=== PATIENT | male | born 1940 | race Caucasian/White ===

== ENCOUNTER 2017-10-03 10:16 | Observation (INO) | payer BC, MEDICARE ==
[2017-10-03 10:16] VITALS: BMI 24.1
--- NOTE | 2017-10-03 10:32 | C.PDOC ---
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 per the pt became confused so they took bg and it was 34. she tried to give po but he would not take it. she says this has happened before. she is not sure if he ate breakfast today. he takes insulin at home. pts says he does not like hospitals and becomes "like a child" and refuses to cooperate in hospital setting. 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 SUBSTANCES (01/24/14) ESOPHAGOGASTRODUODENOSCOPY [EGD] W/CLOSED BIOPSY (01/24/14) INSERT ENDOTRACHEAL TUBE (01/24/14) PARENTERAL INFUSION OF CONCENTRATED NUT. SUBSTANCE (01/24/14) PERCUTANEOUS [ENDOSCOPIC] GASTROSTOMY [PEG] (01/24/14) PLICATION OF VENA CAVA (01/24/14) TEMPORARY TRACHEOSTOMY (01/24/14) TRANSFUSION NEC (01/24/14) VENOUS CATHETERIZATION NEC (01/24/14) Family History: States: Unknown Family Hx - Social History Hx Tobacco Use: No Hx Alcohol Use: No Hx Substance Use: No - Immunization History Hx Tetanus Toxoid Vaccination: No Hx Influenza Vaccination: No Hx Pneumococcal Vaccination: No Review Of Systems Except As Marked, All Systems Reviewed And Found Negative. Constitutional: Negative for: Fever, Chills, Weakness, Malaise Cardiovascular: Negative for: Chest Pain Respiratory: Negative for: Cough, Shortness of Breath Gastrointestinal: Negative for: Nausea, Vomiting, Abdominal Pain Neurological: Negative for: Weakness, Numbness, Headache Physical Exam - Physical Exam Appears: Confused Skin: Diaphoretic Head: Atraumatic Nose: No Epistaxis Oral Mucosa: Moist Neck: Supple Cardiovascular: Rhythm Regular Respiratory: No Decreased Breath Sounds, No Accessory Muscle Use, No Rales, No Rhonchi, No Stridor, No Wheezing Gastrointestinal/Abdominal: Soft Extremity: No Swelling Neurological/Psych: Other (moves all extremities spontaneously, localizes pain, uncooperative with exam.) ED Course And Treatment - Laboratory Results Result Diagrams: 10/03/17 10:56 10/03/17 12:39 Medical Decision Making Medical Decision Making: EKG: Sinus rhythm, 100 bpm, LAFB 1400 pt now a&ox3 and appears well, no complaints. disc w Dr Reed who will admit for refractory hypoglycemia Disposition - Disposition Disposition: HOSPITALIZED Disposition Time: 13:13 Condition: STABLE - Clinical Impression Clinical Impression: Hypoglycemia
[2017-10-03 11:06] LABS: BASO # 0.1 K/uL (0.0-0.2); EOS # 0.5 K/uL (0.0-0.7); EOS % 5.6 % (0.0-4.0); HEMATOCRIT 45.8 % (35.0-51.0); LYMPH # 2.7 K/uL (1.0-4.3); LYMPH % 33.3 % (20.0-40.0); MEAN CELL VOLUME 91.1 fL (80.0-94.0); MEAN CORPUSCULAR HEMOGLOBIN 30.3 pg (27.0-31.0); MEAN CORPUSCULAR HGB CONC 33.3 g/dL (33.0-37.0); MEAN PLATELET VOLUME 8.3 fL (7.2-11.7); MONO # 0.8 K/uL (0.0-0.8); MONO % 9.5 % (0.0-10.0); RED CELL DISTRIBUTION WIDTH 13.9 % (11.5-14.5)
--- NOTE | 2017-10-03 11:38 | RAD ---
HISTORY: ams COMPARISON: Chest x-ray performed 08/20/14 TECHNIQUE: Chest, one view. FINDINGS: Examination limited by hypoinflation and habitus. LUNGS: No focal consolidation. Please note that chest x-ray has limited sensitivity for the detection of pulmonary masses. PLEURA: No significant pleural effusion identified. No definite pneumothorax . CARDIOVASCULAR: Median sternotomy wires with evidence of CABG. Cardiomegaly. OSSEOUS STRUCTURES: Degenerative changes of the spine and shoulders. Osseous demineralization. VISUALIZED UPPER ABDOMEN: Unremarkable. OTHER FINDINGS: None. IMPRESSION: Cardiomegaly. Median sternotomy wires with evidence of CABG. Hypoinflation.
--- NOTE | 2017-10-03 12:17 | CT ---
PROCEDURE: CT HEAD WITHOUT CONTRAST. HISTORY: ams COMPARISON: Comparison is made to the previous study dated 07/21/2014 TECHNIQUE: Axial computed tomography images were obtained through the head/brain without intravenous contrast. Radiation dose: Total exam DLP = 1212.89 mGy-cm. This CT exam was performed using one or more of the following dose reduction techniques: Automated exposure control, adjustment of the mA and/or kV according to patient size, and/or use of iterative reconstruction technique. FINDINGS: HEMORRHAGE: No intracranial hemorrhage. BRAIN: Focal encephalomalacia at the left frontal lobe is again noted. [id number] atrophy is again noted. Mild chronic microvascular white matter ischemic disease is also again seen. VENTRICLES: The ventricles are mildly dilated suggestive of mild hydrocephalus. CALVARIUM: Unremarkable. PARANASAL SINUSES: Complete opacification of the left maxillary sinus is noted new compared to the previous exam. Mild thickening of the left maxillary sinus wall suggestive of chronic sinusitis. MASTOID AIR CELLS: Unremarkable as visualized. No inflammatory changes. OTHER FINDINGS: None. IMPRESSION: No evidence of acute intracranial hemorrhage territorial infarct mass effect or midline shift. Re- demonstration of encephalomalacia at the frontal lobes larger on the left suggestive of old injury. Atrophy and chronic microvascular ischemic disease. Complete opacification of the left maxillary sinus associated with wall thickening suggestive of chronic sinusitis.
[2017-10-03] MEDS ORDERED: Dextrose 50% SYRINGE Inj (50 ml) ONE (12:45)
[2017-10-03] MEDS ORDERED: Dextrose 50% SYRINGE Inj (50 ml) IV STA (13:10)
[2017-10-03 13:29] LABS: BILIRUBIN,TOTAL 0.6 mg/dL (0.2-1.3); CALCIUM 8.6 mg/dl (8.6-10.4); POTASSIUM 3.8 mmol/L (3.6-5.2); TOTAL PROTEIN 8.2 g/dL (6.3-8.3)
[2017-10-03 13:55] LABS: TROPONIN I 0.012 ng/mL (0.00-0.120)
[2017-10-03 15:18] LABS: RBC URINE 1 /hpf (0-3); URINE BILIRUBIN NEGATIVE (NEGATIVE); URINE BLOOD NEGATIVE (NEGATIVE); URINE COLOR Yellow (YELLOW); URINE GLUCOSE (UA) 2+ mg/dL (Normal); URINE KETONE NEGATIVE (NEGATIVE); URINE LEUKOCYTE ESTERASE NEG Leu/uL (Negative); URINE PROTEIN 2+ mg/dL (NEGATIVE); URINE UROBILINOGEN NORMAL mg/dL (0.2-1.0); WBC URINE 1 /hpf (0-5)
[2017-10-03 16:30] VITALS: RESP 20
[2017-10-03 16:51] VITALS: BP 134/81; TEMP 98.2; O2SAT 99
[2017-10-03] MEDS ORDERED: Lactobacillus Acidophilus 500 MU Cap PO SCH (18:00)
--- NOTE | 2017-10-03 20:21 | CP.PCM.HP ---
History of Present Illness - History of Present Illness History of Present Illness: Chief complaint: Altered mental status History present illness: 77-year-old male with history of diabetes, coronary artery disease, chronic kidney disease, benign prostate hypertrophy, torrie's gangrene 2010, hypertension, hypercholesterolemia, esophageal reflux disease, hospitalized following a fall, frontal hemorrhage intracranial hemorrhage complicated with tracheostomy improved markedly. Patient was being evaluated by the neurologist and found to have suspected seizure disorder. was placed on Keppra recently. Patient most of the time doing well, Today am he was checking his sugar and noted to be 64 and took his insulin but did not eat well. He went to sleep after that and family member noted that he was not responding and called ambulance EMS noted that the blood sugar was very low and he was given dextrose and brought to ED. In Er he was ok in the begining but again he got confusion and agitation. Again he was noted to be having low blood sugar. And he needed hospitalisation. Past medical history: Diabetes, PCKD, and BPH, hypertension, hypercholesterolemia, gastroesophageal reflux disease. Intracranial hemorrhage, Past surgical history: Tracheostomy, feeding tube in the past Allergy no known drug allergy Personal history: Patient is a lifelong nonsmoker nonalcoholic currently under disability Review of systems: Patient has no active symptoms of headache, he denies any visual symptoms. now no headache noted Present on Admission - Present on Admission Any Indicators Present on Admission: No History of DVT/PE: No History of Uncontrolled Diabetes: No Urinary Catheter: No Decubitus Ulcer Present: No Review of Systems - Review of Systems Systems not reviewed;Unavailable: Acuity of Condition All systems: reviewed and no additional remarkable complaints except Past Patient History - Past Medical History & Family History Past Medical History?: Yes - Past Social History Smoking Status: Never Smoked - CARDIAC Hx Hypercholesterolemia: Yes Hx Hypertension: Yes - PULMONARY Hx Pneumonia: Yes (ASPIRATION PNEMONIA JANUARY 2014) - NEUROLOGICAL Hx Seizures: Yes (SECONDARY TO BRAIN INJURY) - HEENT Hx HEENT Problems: Yes Hx Cataracts: Yes (LEFT IOL) - ENDOCRINE/METABOLIC Hx Hypothyroidism: Yes - HEMATOLOGICAL/ONCOLOGICAL Hx Blood Disorders: Yes Hx Blood Transfusions: Yes - INTEGUMENTARY Hx Dermatological Problems: No - MUSCULOSKELETAL/RHEUMATOLOGICAL Hx Musculoskeletal Disorders: Yes Hx Falls: Yes - GASTROINTESTINAL Hx Gastrointestinal Disorders: Yes Hx Gastroesophageal Reflux: Yes - GENITOURINARY/GYNECOLOGICAL Hx Genitourinary Disorders: Yes Other/Comment: WEAK BLADDER - PSYCHIATRIC Hx Substance Use: No - SURGICAL HISTORY Hx Surgeries: Yes Hx Coronary Artery Bypass Graft: Yes (TRIPLE BYPASS) Other/Comment: VENA CAVA FILTER - ANESTHESIA Hx Anesthesia: Yes Hx Anesthesia Reactions: No Hx Malignant Hyperthermia: No Meds Allergies/Adverse Reactions: Allergies Allergy/AdvReac Type Severity Reaction Status Date / Time No Known Allergies Allergy Verified 10/03/17 10:52 Physical Exam - Head Exam Head Exam: ATRAUMATIC Additional comments: clinically stable chest good air entry regular hs abd soft no edema Results - Vital Signs Recent Vital Signs: Last Vital Signs Temp 98.2 F 10/03/17 16:00 Pulse 100 H 10/03/17 16:00 Resp 20 10/03/17 16:00 BP 134/81 10/03/17 16:00 Pulse Ox 99 10/03/17 16:00 - Labs Result Diagrams: 10/03/17 10:56 10/03/17 12:39 Labs: Laboratory Results - last 24 hr 10/03/17 10/03/17 10/03/17 10:21 10:56 12:39 WBC 8.0 RBC 5.02 Hgb 15.2 D Hct 45.8 MCV 91.1 D MCH 30.3 MCHC 33.3 RDW 13.9 Plt Count 198 MPV 8.3 Neut % (Auto) 50.6 Lymph % (Auto) 33.3 [place] % (Auto) 9.5 Eos % (Auto) 5.6 H Baso % (Auto) 1.0 Neut # 4.0 Lymph # 2.7 [place] # 0.8 Eos # 0.5 Baso # 0.1 Sodium 142 Potassium 3.8 Chloride 105 Carbon Dioxide 23 Anion Gap 18 BUN 27 H Creatinine 1.4 Est GFR ( Amer) 60 Est GFR (Non-Af Amer) 49 POC Glucose (mg/dL) 166 H Random Glucose 32 L* D Calcium 8.6 Total Bilirubin 0.6 AST 31 ALT 27 Alkaline Phosphatase 67 Troponin I 0.0120 Total Protein 8.2 Albumin 4.2 Globulin 4.1 H Albumin/Globulin Ratio 1.0 Urine Color Urine Clarity Urine pH Ur Specific [place] Urine Protein Urine Glucose (UA) Urine Ketones Urine Blood Urine Nitrate Urine Bilirubin Urine Urobilinogen Ur Leukocyte Esterase Urine WBC (Auto) Urine RBC (Auto) Ur Squamous Epith Cells 10/03/17 10/03/17 10/03/17 12:40 13:53 14:50 WBC RBC Hgb Hct MCV MCH MCHC RDW Plt Count MPV Neut % (Auto) Lymph % (Auto) [place] % (Auto) Eos % (Auto) Baso % (Auto) Neut # Lymph # [place] # Eos # Baso # Sodium Potassium Chloride Carbon Dioxide Anion Gap BUN Creatinine Est GFR ( Amer) Est GFR (Non-Af Amer) POC Glucose (mg/dL) 39 L 193 H Random Glucose Calcium Total Bilirubin AST ALT Alkaline Phosphatase Troponin I Total Protein Albumin Globulin Albumin/Globulin Ratio Urine Color Yellow Urine Clarity Clear Urine pH 6.0 Ur Specific [place] 1.018 Urine Protein 2+ H Urine Glucose (UA) 2+ H Urine Ketones Negative Urine Blood Negative Urine Nitrate Negative Urine Bilirubin Negative Urine Urobilinogen Normal Ur Leukocyte Esterase Neg Urine WBC (Auto) 1 Urine RBC (Auto) 1 Ur Squamous Epith Cells 1 10/03/17 10/03/17 10/03/17 16:24 18:12 20:09 WBC RBC Hgb Hct MCV MCH MCHC RDW Plt Count MPV Neut % (Auto) Lymph % (Auto) [place] % (Auto) Eos % (Auto) Baso % (Auto) Neut # Lymph # [place] # Eos # Baso # Sodium Potassium Chloride Carbon Dioxide Anion Gap BUN Creatinine Est GFR ( Amer) Est GFR (Non-Af Amer) POC Glucose (mg/dL) 347 H 374 H 367 H Random Glucose Calcium Total Bilirubin AST ALT Alkaline Phosphatase Troponin I Total Protein Albumin Globulin Albumin/Globulin Ratio Urine Color Urine Clarity Urine pH Ur Specific [place] Urine Protein Urine Glucose (UA) Urine Ketones Urine Blood Urine Nitrate Urine Bilirubin Urine Urobilinogen Ur Leukocyte Esterase Urine WBC (Auto) Urine RBC (Auto) Ur Squamous Epith Cells Assessment & Plan (1) Altered mental status Status: Acute (2) Hypoglycemia Assessment and Plan: AMS because of hypoglycemia poor eating labs noted no evidence of infection no evidence or renal function deterioration improving will hold oral hypoglycemic Status: Acute
--- NOTE | 2017-10-03 20:37 | CP.PCM.DIS ---
Provider - Provider Date of Admission: 10/03/17 13:13 Attending physician: Lashonda Reed MD Time Spent in preparation of Discharge (in minutes): 45 Diagnosis - Discharge Diagnosis (1) Altered mental status Status: Acute (2) Hypoglycemia Status: Acute Hospital Course - Lab Results Lab Results: Most Recent Lab Values WBC 8.0 K/uL (4.8-10.8) 10/03/17 10:56 RBC 5.02 Mil/uL (4.40-5.90) 10/03/17 10:56 Hgb 15.2 g/dL (12.0-18.0) D 10/03/17 10:56 Hct 45.8 % (35.0-51.0) 10/03/17 10:56 MCV 91.1 fL (80.0-94.0) D 10/03/17 10:56 MCH 30.3 pg (27.0-31.0) 10/03/17 10:56 MCHC 33.3 g/dL (33.0-37.0) 10/03/17 10:56 RDW 13.9 % (11.5-14.5) 10/03/17 10:56 Plt Count 198 K/uL (130-400) 10/03/17 10:56 MPV 8.3 fL (7.2-11.7) 10/03/17 10:56 Neut % (Auto) 50.6 % (50.0-75.0) 10/03/17 10:56 Lymph % (Auto) 33.3 % (20.0-40.0) 10/03/17 10:56 [place] % (Auto) 9.5 % (0.0-10.0) 10/03/17 10:56 Eos % (Auto) 5.6 % (0.0-4.0) H 10/03/17 10:56 Baso % (Auto) 1.0 % (0.0-2.0) 10/03/17 10:56 Neut # 4.0 K/uL (1.8-7.0) 10/03/17 10:56 Lymph # 2.7 K/uL (1.0-4.3) 10/03/17 10:56 [place] # 0.8 K/uL (0.0-0.8) 10/03/17 10:56 Eos # 0.5 K/uL (0.0-0.7) 10/03/17 10:56 Baso # 0.1 K/uL (0.0-0.2) 10/03/17 10:56 Sodium 142 mmol/L (132-148) 10/03/17 12:39 Potassium 3.8 mmol/L (3.6-5.2) 10/03/17 12:39 Chloride 105 mmol/L (98-107) 10/03/17 12:39 Carbon Dioxide 23 mmol/L (22-30) 10/03/17 12:39 Anion Gap 18 (10-20) 10/03/17 12:39 BUN 27 mg/dL (9-20) H 10/03/17 12:39 Creatinine 1.4 mg/dL (0.8-1.5) 10/03/17 12:39 Est GFR ( Amer) 60 10/03/17 12:39 Est GFR (Non-Af Amer) 49 10/03/17 12:39 POC Glucose (mg/dL) 367 mg/dL (65-110) H 10/03/17 20:09 Random Glucose 32 mg/dL (75-110) L* D 10/03/17 12:39 Calcium 8.6 mg/dl (8.6-10.4) 10/03/17 12:39 Total Bilirubin 0.6 mg/dL (0.2-1.3) 10/03/17 12:39 AST 31 U/L (17-59) 10/03/17 12:39 ALT 27 U/L (21-72) 10/03/17 12:39 Alkaline Phosphatase 67 U/L (38-126) 10/03/17 12:39 Troponin I 0.0120 ng/mL (0.00-0.120) 10/03/17 12:39 Total Protein 8.2 g/dL (6.3-8.3) 10/03/17 12:39 Albumin 4.2 g/dL (3.5-5.0) 10/03/17 12:39 Globulin 4.1 gm/dL (2.2-3.9) H 10/03/17 12:39 Albumin/Globulin Ratio 1.0 (1.0-2.1) 10/03/17 12:39 Urine Color Yellow (YELLOW) 10/03/17 14:50 Urine Clarity Clear (Clear) 10/03/17 14:50 Urine pH 6.0 (5.0-8.0) 10/03/17 14:50 Ur Specific [employer] 1.018 (1.003-1.030) 10/03/17 14:50 Urine Protein 2+ mg/dL (NEGATIVE) H 10/03/17 14:50 Urine Glucose (UA) 2+ mg/dL (Normal) H 10/03/17 14:50 Urine Ketones Negative mg/dL (NEGATIVE) 10/03/17 14:50 Urine Blood Negative (NEGATIVE) 10/03/17 14:50 Urine Nitrate Negative (NEGATIVE) 10/03/17 14:50 Urine Bilirubin Negative (NEGATIVE) 10/03/17 14:50 Urine Urobilinogen Normal mg/dL (0.2-1.0) 10/03/17 14:50 Ur Leukocyte Esterase Neg [place]/uL (Negative) 10/03/17 14:50 Urine WBC (Auto) 1 /hpf (0-5) 10/03/17 14:50 Urine RBC (Auto) 1 /hpf (0-3) 10/03/17 14:50 Ur Squamous Epith Cells 1 /hpf (0-5) 10/03/17 14:50 - Hospital Course Hospital Course: pt history and physcial noted pt now feeling ok hypoglycemia because of poor oral intake discussed with family pt is doing well will d/c home f/u in 2 weeks hold today antiglycemic resume the home meds in am meds reconciled f/u Discharge Exam - Head Exam Head Exam: ATRAUMATIC Discharge Plan - Follow Up Plan Condition: STABLE Disposition: HOME/ ROUTINE Instructions: Diabetic Hypoglycemia (DC), Healthy Living for Adolescents (GEN) , Meal Planning with Diabetes Exchanges (DC) Referrals: Lashonda Reed MD [Staff Provider] -
--- NOTE | 2017-10-03 20:44 | CP.PCM.PN ---
Objective - Vital Signs/Intake and Output Vital Signs (last 24 hours): Temp Pulse Resp BP Pulse Ox 98.2 F 100 H 20 134/81 99 10/03/17 16:00 10/03/17 16:00 10/03/17 16:00 10/03/17 16:00 10/03/17 16:00 - Medications Medications: Current Medications Ascorbic Acid (Vitamin C 500 Mg Tab) 500 mg PO DAILY [facility] Aspirin (Ecotrin) 81 mg PO DAILY [facility] Cilostazol (Pletal) 100 mg PO DAILY [facility] Enoxaparin Sodium (Lovenox) 40 mg SC DAILY [facility] Ergocalciferol (Drisdol 50,000 Intl Units Cap) 1 cap PO QWK [facility] Dextrose (Dextrose 10% In Water) 1,000 mls @ 100 mls/hr IV .Q10H [facility] Last Admin: 10/03/17 13:42 Dose: 100 mls/hr Lactobacillus Acidophilus (Bacid Acidophilus) 1 cap PO BID [facility] Last Admin: 10/03/17 19:06 Dose: 1 cap Levetiracetam (Keppra) 1,000 mg PO BID [facility] Last Admin: 10/03/17 19:06 Dose: 1,000 mg Levothyroxine Sodium (Synthroid) 25 mcg PO DAILY@0630 [facility] Pantoprazole Sodium (Protonix Ec Tab) 40 mg PO DAILY [facility] Rosuvastatin Calcium (Crestor) 5 mg PO HS [facility] Tamsulosin HCl (Flomax) 0.4 mg PO DAILY [facility] Zinc Sulfate (Zinc Sulfate 220 Mg Cap) 220 mg PO DAILY [facility] - Labs Labs: 10/03/17 10:56 10/03/17 12:39 Assessment and Plan (1) Altered mental status Status: Acute (2) Hypoglycemia Status: Acute
[2017-10-04 01:53] VITALS: PULSE 98
[2017-10-04] MEDS ORDERED: Levothyroxine 25 MCG TAB PO SCH (06:30)
[2017-10-04] MEDS ORDERED: Cilostazol 100 mg Tab UD PO SCH (10:00)
[2017-10-04] MEDS ORDERED: Pantoprazole 40 mg EC Tab PO SCH (10:00)
[2017-10-04] MEDS ORDERED: Enoxaparin 40 mg Syringe SC SCH (10:00)
[2017-10-10] MEDS ORDERED: Ergocalciferol 50,000 Intl Units Cap PO SCH (10:00)
== END 2017-10-03 21:00 | disposition home or self-care (01) ==
LOC: C.ER 10:16 → C.9E 13:13 → C.6T 14:12
PROVIDERS: ADMIT Internal Medicine; ATTEND Internal Medicine
DX: E11.649 Type 2 diabetes mellitus with hypoglycemia without coma (principal); E11.22 Type 2 diabetes mellitus with diabetic chronic kidney disease; E03.9 Hypothyroidism, unspecified; G40.909 Epilepsy, unspecified, not intractable, without status epilepticus; I12.0 Hypertensive chronic kidney disease with stage 5 chronic kidney disease or end stage renal disease; N18.6 End stage renal disease; I25.10 Atherosclerotic heart disease of native coronary artery without angina pectoris; K21.9 Gastro-esophageal reflux disease without esophagitis; N40.0 Benign prostatic hyperplasia without lower urinary tract symptoms; E78.00 Pure hypercholesterolemia, unspecified; Z87.01 Personal history of pneumonia (recurrent); Z87.820 Personal history of traumatic brain injury; Z95.1 Presence of aortocoronary bypass graft
CPT/HCPCS: 70450; 71010; 80053; 80299; 81001; 82948; 84484; 85025; 92610; 99285; G0378; G8996; G8997; G8998